=== PATIENT | female | born 1990 | race Caucasian/White ===

== ENCOUNTER 2016-12-02 19:37 | Emergency (ER) | payer MEDICAID, OTHER ==
[2016-12-02] MEDS ORDERED: DIPH,PERTUSS(ACELL),TET VAC/PF 0.5 ML DISP.SYRIN IM ONE (19:53)
[2016-12-02] MEDS ORDERED: Lidocaine 1% 5ml(IM or SUTURE)(PAIN CLINIC) IJ ONE (20:05)
[2016-12-02] MEDS ORDERED: TRIPLE ANTIBIOTIC OINTMENT PAC 1 PACKET TOP ONE (20:07)
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
[2016-12-02 21:22] VITALS: BP 135/85
--- NOTE | 2016-12-03 06:48 | Diagnostic Imaging Report ---
ANTON MAY (GIOVANNI) - ER [facility] [id number] [facility].[address] [address] Report Submission Date: December 02, 2016 8:23:30 PM CDT Patient Study Name: MATT NORRIS Date: December 02, 2016 8:07:54 PM CDT Modality Type: CR Gender: F Description: LOWER EXTREMITY : 88 Institution: [facility] Physician: ANTON MAY) - ER 3 views right knee Clinical history: Right knee pain Findings: No acute fracture dislocation is identified. The alignment is normal. There is no significant joint effusion. Impression: Negative Electronically signed on December 02, 2016 8:23:30 PM CDT by: Anshul REES
== END 2016-12-02 20:52 | disposition home or self-care (01) ==
LOC: ED 19:37
DX: S81.011A Laceration without foreign body, right knee, initial encounter (principal); X58.XXXA Exposure to other specified factors, initial encounter; Y93.9 Activity, unspecified; Y99.9 Unspecified external cause status
CPT/HCPCS: 12001; 73562; 90471; 90715; 99283; 99284

== ENCOUNTER 2018-01-12 18:18 | Emergency (ER) | payer MEDICAID, OTHER ==
[2018-01-12] MEDS ORDERED: SODIUM BICARBONATE 2.4 MEQ VIAL INJ ONE (18:46)
[2018-01-12] MEDS ORDERED: Lidocaine 1% 5ml(IM or SUTURE)(PAIN CLINIC) IJ ONE (18:46)
[2018-01-12] MEDS ORDERED: Lidocaine 2% 20ml Vial ONE (18:51)
[2018-01-12 18:56] VITALS: BP 124/87
--- NOTE | 2018-01-12 19:06 | ED Physician Documentation ---
Abscess - HISTORIAN Historian: patient - HPI Stated Complaint: abcess Chief Complaint: Abscess Onset: days ago (01/07/18) Timing: worse Location: other (right shoulder) Further Comments: yes (27 year old female patient presents with abscess to right shoulder. Reports she had the area drained at the doctor's office last Friday. "Poked with a needle and mashed it". Patient was started on Bactrim DS and bactroban ointment. Reports increased pain and "will not get better".) - ROS CONST: none CVS/RESP: none EYES/ENT: none GI/: none MS/SKIN/LYMPH: none NEURO/PSYCH: none - PAST HX Past History: none Other History: other (mirena) Allergies/Adverse Reactions: Allergies Allergy/AdvReac Type Severity Reaction Status Date / Time No Known Allergies Allergy Verified 01/12/18 18:38 Home Medications: Ambulatory Orders Medication Instructions Recorded Mupirocin [Bactroban] 1 appl TP BID #1 tube 12/02/16 Sulfamethoxazole/Trimethoprim 1 tab PO BID 01/12/18 [Bactrim DS] - SOCIAL HX Smoking History: cigarettes - FAMILY HX Family History: denies: none - VITAL SIGNS Vital Signs: Vital Signs Temp Pulse Resp BP Pulse Ox 98.5 F 84 16 124/87 96 01/12/18 19:10 01/12/18 19:10 01/12/18 19:10 01/12/18 19:10 01/12/18 19:10 - REVIEWED ASSESSMENTS Nursing Assessment Reviewed: Yes Vitals Reviewed: Yes Procedures Site: right shoulder Blade Size: 11 I & D Procedure: Chlorhexidine Progress: Wound cleaned with chlorhexidine and NS; anesthetized with Lidocaine 2% and neut. .5 cm Incision; large amount of purulent drainage, culture obtained. Wound explored; packed with 1/2 plain gauze and covered with dressing. Patient tolerated well. Reviewed discharge instructions; patient verbalized understanding. ED Results Lab/Radiology - Orders Orders: ED Orders Category Date Time Status WOUND CULTURE Stat Lab 01/12/18 18:47 Ordered Lidocaine 1% 5ml(IM or SUTURE) [Xylocaine] Med 01/12/18 18:46 Discontinued 50 mg IJ NOW ONE Lidocaine 2% 20ml Vial [Xylocaine] Med 01/12/18 19:09 Once 4 mg SUBCUT NOW ONE Lidocaine 2% 20ml Vial [Xylocaine] Med 01/12/18 18:51 Discontinued 400 mg .ROUTE .STK-MED ONE Sodium Bicarbonate [Neut] Med 01/12/18 18:46 Discontinued 2.4 meq INJ NOW ONE Abscess Physical Exam - EXAM General Appearance: mild distress Skin: warm,dry, abscess (right shoulder 4 cm area of erythema with soft center) Location: other (right shoulder) Character: erythematous Symptoms: warmth, tenderness, inflammation Extremities: non-tender, nml ROM, no edema Respiratory: no resp distress CVS: reg. rate & rhythm Neuro/Psych: oriented x3, motor nml, sensation nml, mood/affect nml Discharge Clincal Impression: Abscess of right shoulder Additional Instructions: Continue you Bactrim DS until finished. Restart bactroban ointment after wound has begun to heal. Clean the laceration twice a day with hibiclens and rinse with water clean away any scabbed area Cover with non-adherent bandage if able. Remove packing tomorrow night around 6pm. Expect a small amount of bloody drainage. Tylenol or ibuprofen as needed for discomfort. See your primary care doctor in 2 days for a wound recheck Condition: Stable Disposition: HOME, SELF-CARE Decision to Admit: NO Decision Time: 19:06
[2018-01-12] MEDS ORDERED: Lidocaine 2% 20ml Vial SUBCUT ONE (19:09)
== END 2018-01-12 19:10 | disposition home or self-care (01) ==
LOC: ED 18:18
DX: L02.413 Cutaneous abscess of right upper limb (principal)
CPT/HCPCS: 10060; 87070

== ENCOUNTER 2019-07-05 19:35 | Emergency (ER) | payer SELFPAY ==
[2019-07-05] MEDS ORDERED: AMOXICILLIN/POT 875/125 1 EACH PO ONE (19:55)
--- NOTE | 2019-07-05 20:01 | ED Physician Documentation ---
Upper Respiratory Symptoms - HISTORIAN Historian: patient - HPI Chief Complaint: Upper Respiratory Symptoms Additional Information: 29 year old female presents with cough and congestion that started yesterday; developed fever, chills, body aches, and recently started with greenish productive sputum. She did not get the flu vaccine; and works at [employer]. Onset: days ago Duration: sudden-Onset Context: denies: recent foreign travel, multiple patients Severity: moderate Associated Symptoms: fever, chills, productive cough Worsened by Deep Breath: No - ROS CONST/EYES: weakness CVS/RESP: none LYMPH: denies: rash GI/: none NEURO/PSYCH: denies: dizziness MS/SKIN: muscle aches - PAST HX Lung Disease: none PE Risk Factors: none Immunizations: UTD. denies: influenza Allergies/Adverse Reactions: Allergies Allergy/AdvReac Type Severity Reaction Status Date / Time No Known Allergies Allergy Verified 01/12/18 18:38 Home Medications: Ambulatory Orders Medication Instructions Recorded Mupirocin 2% Oint. [Bactroban] 1 appl TP BID #1 tube 12/02/16 Sulfamethoxazole/Trimethoprim 1 tab PO BID 01/12/18 [Bactrim DS] Amoxicillin/Potassium Clav 1 each PO BID #20 tablet 07/05/19 [Augmentin 875-125 Tablet] - SOCIAL HX Smoking History: less than 1 pack/day Alcohol Use: none Drug Use: none - FAMILY HX Family History: none - VITAL SIGNS Vital Signs: Vital Signs Temp Pulse Resp BP Pulse Ox 124/87 01/12/18 19:10 - REVIEWED ASSESSMENTS Nursing Assessment Reviewed: Yes Vitals Reviewed: Yes ED Results Lab/Radiology - Orders Orders: ED Orders Category Date Time Status INFLUENZA A&B Stat Lab 07/05/19 Uncollected Amoxicillin/Potassium Clav [AUGMENTIN 875MG/125 mg Med 07/05/19 19:55 Once Tablet] 1 each PO NOW ONE Upper Respiratory Symptoms - EXAM General Appearance: alert, mild distress EENT: eyes nml inspection, nml ENT inspection, lids & conjunct. nml, PERRL, ear nml, pain over sinuses, maxillary, nose nml, pharynx nml, airway nml Neck: normal inspection, supple Respiratory: breath sounds nml Abdomen: nml bowel sounds CVS: heart sounds normal Skin: color nml, no rash, warm,dry Extremities: non-tender Neuro/Psych: oriented x3, neuro intact, mood/affect nml Discharge Clincal Impression: Acute sinus infection Prescriptions: Amoxicillin/Potassium Clav [Augmentin 875-125 Tablet] 1 each PO BID #20 tablet Referrals: Ahmet Hutchison MD [Primary Care Provider] - 2 Days Additional Instructions: Take Antibiotic as directed (Augmentin 875mg by mouth twice a day for 10 days) Alternate Tylenol and Ibuprofen as needed for fever >101/ discomfort Increase fluid intake >64 oz daily Follow up with PCP next week for re-evaluation Condition: Good Disposition: 01 HOME, SELF-CARE Decision to Admit: NO Decision Time: 20:58
[2019-07-05 20:58] VITALS: BP 126/94
== END 2019-07-05 20:10 | disposition home or self-care (01) ==
LOC: ED 19:35
DX: J01.90 Acute sinusitis, unspecified (principal); F17.210 Nicotine dependence, cigarettes, uncomplicated
CPT/HCPCS: 87400; 99283